=== PATIENT | male | born 1955 | race Caucasian/White ===

== ENCOUNTER → 2016-10-14 | Outpatient (CLI) | payer BC ==
--- NOTE | 2016-10-14 15:56 | KCIC ---
PROCEDURE Cervical spine radiographs HISTORY Neck stiffness, pain with turning COMPARISON None FINDINGS Four views of the cervical spine are submitted. Atlantoaxial distance is within normal limits. Cervical vertebral body stature is adequate. There is moderate to severe degenerative disc disease C5-C6 and C6-7, spondylosis at the same levels. AP alignment is overall adequate. There is adequate alignment of the lateral masses of C1 relative to C2. Occipital condylar-C1 articulation is obscured by overlying bone and teeth on the odontoid view. IMPRESSION There is degenerative disc disease and spondylosis greatest at C5-C6 and C6-7. Electronically signed by: Abraham El MD (October 14, 2016 15:55:29)
--- NOTE | 2016-10-14 15:57 | KCIC ---
PROCEDURE Right knee radiographs. HISTORY Worsening right knee pain, previous meniscus surgery COMPARISON None FINDINGS Two views of the right knee are submitted. No acute fracture or dislocation is identified. There is moderate to severe narrowing of the medial compartment joint space, lesser degree of narrowing of the lateral compartment joint space. There is no significant joint effusion. IMPRESSION 1. There is joint space narrowing greatest of the medial compartment. Electronically signed by: Abraham El MD (October 14, 2016 15:56:26)
== END | disposition home or self-care (01) ==
LOC: KCIC 14:59
PROVIDERS: ATTEND Family Medicine
DX: M25.561 Pain in right knee (principal); M47.892 Other spondylosis, cervical region; M54.2 Cervicalgia
CPT/HCPCS: 72040; 73560